=== PATIENT | male | born 1990 | race Caucasian/White ===

== ENCOUNTER 2018-02-23 12:37 | Emergency (ER) | payer MEDICAID ==
[~2018-02-23] VITALS: Ht 170.2 cm; Wt 124.7 kg
[2018-02-23 12:55] VITALS: Ht 170.2 cm; Wt 124.7 kg
[2018-02-23 15:01] VITALS: BP 137/78
== END 2018-02-23 15:01 | disposition home or self-care (01) ==
LOC: ED 12:37
DX: L03.116 Cellulitis of left lower limb (principal)